=== PATIENT | female | born 1980 | race Two or more races ===

== ENCOUNTER 2023-09-16 16:57 | Emergency (ER) | payer SELFPAY ==
[~2023-09-16] VITALS: Ht 154.9 cm; Wt 58.0 kg
[2023-09-16 17:03] VITALS: BP 126/82; PULSE 104; RESP 18; TEMP 99; O2SAT 95
== END 2023-09-16 17:26 | disposition left against medical advice (07) ==
LOC: ER 16:57
DX: R41.0 Disorientation, unspecified (principal); R11.0 Nausea; Z88.8 Allergy status to other drugs, medicaments and biological substances; Z53.21 Procedure and treatment not carried out due to patient leaving prior to being seen by health care provider